=== PATIENT | male | born 1965 | race Caucasian/White ===

== ENCOUNTER → 2024-03-13 15:29 | Outpatient (REF) | payer BC, SELFPAY | LOC: HWRAD 15:29 | PROVIDERS: ATTENDING PHYSICIAN Family Medicine | DX: R05.9 Cough, unspecified (principal) | CPT/HCPCS: 71046 ==

== ENCOUNTER → 2024-06-18 14:30 | Outpatient (REF) | payer BC, SELFPAY | LOC: DHSLP 14:30 | PROVIDERS: ATTENDING PHYSICIAN Internal Medicine; FAMILY PHYSICIAN Family Medicine | DX: G47.33 Obstructive sleep apnea (adult) (pediatric) (principal) | CPT/HCPCS: 95800 ==

== ENCOUNTER → 2024-12-20 12:00 | Outpatient (REF) | payer BC, SELFPAY | LOC: DHSLP 12:00 | PROVIDERS: ATTENDING PHYSICIAN Internal Medicine Critical Care Medicine; FAMILY PHYSICIAN Family Medicine | DX: G47.33 Obstructive sleep apnea (adult) (pediatric) (principal) | CPT/HCPCS: 95800 ==

== ENCOUNTER 2025-02-18 18:52 | Emergency (ER) | payer BC, SELFPAY ==
[2025-02-18 19:00] VITALS: BP 158/93
--- NOTE | 2025-02-18 20:51 | ED.GENMED ---
History of Present Illness
General
Chief Complaint: Visual Problem
Source: patient and spouse
Exam Limitations: none
Time Seen by Provider: 02/18/25 20:39
Nursing documentation reviewed up to this point in time: agreed with
History of Present Illness
History of Present Illness:
59-year-old male with past medical history as noted presents to the ER for evaluation of diplopia. Patient reports that symptoms have been intermittent for quite some time although he cannot tell me an exact time of onset. He says that he noticed
the symptoms more tonight which prompted him to come to the ER to be assessed. He reports double vision with both eyes open that resolves when either eyes closed. He says that tonight he noticed it most when he was driving around desk�he does note
that he had just finished working on his computer before getting into the car. He denies any eye pain. He denies any loss of vision. He denies any headache or neck pain. He denies any other acute complaints. He does wear glasses and says that
he got a new prescription in November.
Review of Systems
Review of Systems
All Other Systems: ROS reviewed and negative except as documented in HPI and ROS
EENT: Reports other (Double vision; denies eye pain)
ABD/GI: Denies nausea or vomiting
Neurological: Denies dizzy, headache, weakness or numbness
Phy Exam
Physical Exam
Physical Exam:
General: Awake, alert, oriented x3; no acute distress
Head: Normocephalic, atraumatic
Eyes: Conjunctiva normal, pupils 3 mm round and reactive to light bilaterally; extraocular movements are intact without gaze palsy; visual lewis are intact; visual acuity-- right 20/20 left 20/20, both 20/20 (corrected with glasses)
Throat: Airway intact, handling secretions
Neck: Trachea midline, supple without meningismus
Lungs: Breathing comfortably with no evidence of respiratory distress
Heart: Regular rate
Neuro: Cranial nerves intact 2 through 12, speech fluid without dysarthria or aphasia, no limb ataxia, motor and sensory intact in all extremities
Skin: Warm and dry
Extremities: Warm, well-perfused
Scores
Heart Failure Risk
Heart Failure Risk Score: Not Applicable
Heart Score for Chest Pain Patients
STEMI patient?: Not applicable
Withdrawal Assessment of Alcohol
Withdrawal Assessment Completed?: Not applicable
Course
Orders/Labs/Results
Orders:
Orders
02/18/25 19:02
CT Head W/o Iv Contrast Urgent
Comment:
Reason For Exam: double vision
02/18/25 20:57
Visual Acuity- Treatment ONCE
Vital Signs
Initial and Last Documented VS:
Initial Vital Signs
Temp Pulse Resp BP Pulse Ox
36.8 C 71 16 158/93 96
02/18/25 19:00 02/18/25 19:00 02/18/25 19:00 02/18/25 19:00 02/18/25 19:00
Last Documented Vital Signs
Temp Pulse Resp BP Pulse Ox
36.8 C 71 16 158/93 96
02/18/25 19:00 02/18/25 19:00 02/18/25 19:00 02/18/25 19:00 02/18/25 20:51
MDM/Problems Addressed
Differential Diagnosis Includes:
Wide differential diagnosis includes but not limited to: Brain mass, aneurysm, dissection, CVA, eyestrain/muscular dysfunction, cataract, macular degeneration, lens issue
MDM/Problems Addressed:
59-year-old male with history as noted presents for evaluation of diplopia�it sounds like symptoms have been ongoing for some time but somewhat worse this evening while driving. He says symptoms actually improved here in the ER although still
present. Hypertensive but otherwise normal vitals. Physical exam is as noted�he has notably reassuring neurologic exam with no cranial nerve deficits noted. His visual lewis are intact. Visual acuity as noted. He had a CT head in triage which
shows no acute abnormality. He has no cranial nerve deficits, no headache or neck pain�indication for angiogram emergently. Nothing to suggest CVA at this point in time. My judgment patient is stable for discharge from the emergency room and can
follow-up with ophthalmology on an urgent outpatient basis. He says he already has an eye doctor and I advised him to call tomorrow to make an appointment soon as possible. We spoke about follow-up plan and return precautions and all questions
were answered.
Acute Exacerbation and/or Progression of Chronic Illness: HTN
*Radiology
Radiology exam reviewed: radiology read reviewed
*Pulse Oximetry
SaO2: 96
Oxygen Mode of Delivery: Room air
Patient hypoxic: no (96%)
*Critical Care Note
Total Time (30-74mins, 75-104mins- exclusive of procedures): Not Applicable
Data Reviewed
Source: patient and spouse
Further Testing Considered But Not Given:
Considered need for emergent CT angio, MRI
ED Attending Note
-
Portions of this chart may have been created with voice recognition software.� Occasional wrong word or��sound alike� substitutions may have occurred due to the inherent limitations of voice recognition software.
Discharge Plan
Departure
Patient Disposition: Home (Routine Discharge)
Date of Disposition: 02/18/25
Time of Disposition: 21:02
Patient with high blood pressure during this ER visit?: Yes
Discharge Problem:
Diplopia
Instructions: Double Vision (DC)
Referrals:
Manas Mooney MD [Active, Ophthalmology] - Call in 1-3 days for appt
Referral Note: You should follow up with your normal eye doctor--if you need a new files supervisor you can follow at the number listed.
Activity Restrictions/Additional Instructions:
You should call first thing tomorrow morning to schedule an appointment with your eye doctor soon as possible. If your symptoms are worsening or if you develop any new symptoms that are concerning to you please return to the emergency room
immediately�new concerning symptoms would include weakness or numbness in extremities, vision loss, eye pain, headache, neck pain, or any other symptom that is concerning to you.
Thank you for visiting the Emergency Department at [facility] [place].
1. Please schedule a follow up appointment as directed. Call first thing tomorrow morning to make an appointment.
2. If indicated, please take your medications as instructed and indicated on discharge paperwork.
3. If any of your symptoms do not improve, or persist, or become more severe within 6-12 hours, please return to the emergency department for further care.
4. Please return to the emergency department if you develop a headache, neck pain/stiffness, fever greater than 100.4F, chest pain, shortness of breath, persistent nausea, vomiting, slurred speech, difficulty walking, numbness/tingling, weakness,
signs of infection or any other symptoms that are worrisome to you.
Please call [phone] if you have any questions.
Interventions
Interventions:
*Risk Screen - Suicide Last Done: 02/18/25 19:00
*General Assessment Last Done: 02/18/25 21:23
*Neglect/Abuse Screening Last Done: 02/18/25 21:23
*ED COVID-19 Vaccine History Last Done: 02/18/25 21:23
*ED Influenza Vaccine History Last Done: 02/18/25 21:23
[facility] Fall Risk Assessment Tool Last Done: 02/18/25 21:25
*Nursing Disposition Last Done: 02/18/25 21:25
ED- Neurological Assessment Last Done: 02/18/25 21:23
ED-EENT Assessment Last Done: 02/18/25 21:23
Discharge Date and Time
Discharge Date/Time: 02/18/25 21:27
Print Language: DANISH
== END 2025-02-18 21:27 | disposition home or self-care (01) ==
LOC: EMR 18:52
PROVIDERS: EMERGENCY PHYSICIAN Emergency Medicine; FAMILY PHYSICIAN Family Medicine
DX: H53.2 Diplopia (principal); I10 Essential (primary) hypertension
CPT/HCPCS: 99284; 70450

== ENCOUNTER → 2025-02-28 07:19 | Outpatient (REF) | payer BC, SELFPAY | LOC: DHSLP 07:19 | PROVIDERS: ATTENDING PHYSICIAN Internal Medicine; FAMILY PHYSICIAN Family Medicine | DX: G47.33 Obstructive sleep apnea (adult) (pediatric) (principal); R09.02 Hypoxemia | CPT/HCPCS: 95800 ==